=== PATIENT | female | born 1990 | race Caucasian/White ===

== ENCOUNTER 2023-08-22 22:02 | Observation (INO) | payer OTHER, SELFPAY ==
[2023-08-22 22:40] LABS: Urine Albumin Negative (Neg - Trace); Urine Bilirubin Negative (Negative); Urine Character Clear (Clear); Urine Color Yellow; Urine Glucose 3+ (Negative); Urine Ketone Negative (Negative); Urine Leukocyte 1+ (Negative); Urine Nitrite Negative (Negative); Urine Occult Blood Negative (Negative); Urine Urobilinogen Negative (Neg - 1+)
[2023-08-22 22:41] LABS: Hematocrit 29.8 % (37.0-47.0); Hemoglobin 10.3 g/dL (12.0-16.0); Mean Corp Hgb Conc. 34.6 g/dL (33.0-37.0); Mean Corpuscular Hgb 27.8 pg (27.0-31.0); Mean Corpuscular Volume 80.3 fL (81.0-99.0); Mean Platelet Volume 10.6 fL (7.4-10.4); Platelet Count 332 10^3/uL (130-400); Red Blood Cell Count 3.71 10^6/uL (4.20-5.40); Red Cell Dist. Width 14.6 % (11.5-14.5); White Blood Cell Count 8.8 10^3/uL (4.8-10.8)
[2023-08-22 22:44] VITALS: BP 112/77; BMI 31.8
[2023-08-22 22:53] LABS: Urine Bacteria Many (Negative); Urine Red Blood Cell 0-2 /HPF (0-2)
[2023-08-22 22:56] LABS: ALT (SGPT) 13 U/L (0-35); AST (SGOT) 20 U/L (14-36); Albumin 3.3 g/dl (3.5-5.0); Alkaline Phosphatase 143 U/L (38-126); Blood Urea Nitrogen 8 mg/dl (7-17); Calcium 9.4 mg/dl (8.4-10.2); Carbon Dioxide 18 mmol/L (22-30); Chloride 106 mmol/L (98-107); Estimated Creatinine Clearance > 125 ml/min; Glucose 139 mg/dl (70-99); Potassium 3.7 mmol/L (3.5-5.1); Sodium 134 mmol/L (135-145); Total Bilirubin 0.2 mg/dl (0.2-1.3); Total Protein 6.3 g/dl (6.3-8.2); eGFR > 60.00
[2023-08-22 22:57] LABS: Protein/creatinine Ratio 0.4; Urine Protein 15 mg/dl
== END 2023-08-22 23:53 | disposition home or self-care (01) ==
LOC: LDRP 22:02
PROVIDERS: ADMITTING PHYSICIAN Obstetrics & Gynecology
DX: O47.1 False labor at or after 37 completed weeks of gestation (principal); Z3A.37 37 weeks gestation of pregnancy; R03.0 Elevated blood-pressure reading, without diagnosis of hypertension
CPT/HCPCS: 80053; 81003; 81015; 82570; 84156; 85027; 86850; 86900; 86901; G0378

== ENCOUNTER 2023-08-31 20:53 | Observation (INO) | payer OTHER, SELFPAY ==
[2023-08-31 21:32] VITALS: BMI 32.1
[2023-08-31 21:34] LABS: Hematocrit 29.4 % (37.0-47.0); Hemoglobin 10.1 g/dL (12.0-16.0); Mean Corp Hgb Conc. 34.4 g/dL (33.0-37.0); Mean Corpuscular Hgb 27.4 pg (27.0-31.0); Mean Corpuscular Volume 79.9 fL (81.0-99.0); Mean Platelet Volume 10.1 fL (7.4-10.4); Platelet Count 322 10^3/uL (130-400); Red Blood Cell Count 3.68 10^6/uL (4.20-5.40); Red Cell Dist. Width 15.2 % (11.5-14.5); White Blood Cell Count 9.8 10^3/uL (4.8-10.8)
[2023-08-31 21:37] LABS: Urine Albumin Negative (Neg - Trace); Urine Bilirubin Negative (Negative); Urine Character Clear (Clear); Urine Color Yellow; Urine Glucose Negative (Negative); Urine Ketone Negative (Negative); Urine Leukocyte Negative (Negative); Urine Nitrite Negative (Negative); Urine Occult Blood Negative (Negative); Urine Urobilinogen Negative (Neg - 1+)
[2023-08-31 21:48] LABS: ALT (SGPT) 12 U/L (0-35); AST (SGOT) 20 U/L (14-36); Albumin 3.4 g/dl (3.5-5.0); Alkaline Phosphatase 151 U/L (38-126); Blood Urea Nitrogen 11 mg/dl (7-17); Calcium 9.5 mg/dl (8.4-10.2); Carbon Dioxide 18 mmol/L (22-30); Chloride 105 mmol/L (98-107); Estimated Creatinine Clearance > 125 ml/min; Glucose 103 mg/dl (70-99); Potassium 4.3 mmol/L (3.5-5.1); Sodium 132 mmol/L (135-145); Total Bilirubin 0.3 mg/dl (0.2-1.3); Total Protein 6.4 g/dl (6.3-8.2); eGFR > 60.00
[2023-08-31 21:56] LABS: Protein/creatinine Ratio 0.8; Urine Protein 14 mg/dl
[2023-08-31] MEDS: LR 1000 IV (23:30)
== END 2023-09-01 09:20 | disposition home or self-care (01) ==
LOC: LDRP 20:53
PROVIDERS: ADMITTING PHYSICIAN Obstetrics & Gynecology
DX: O13.3 Gestational [pregnancy-induced] hypertension without significant proteinuria, third trimester (principal); Z3A.39 39 weeks gestation of pregnancy; Z82.49 Family history of ischemic heart disease and other diseases of the circulatory system; Z82.0 Family history of epilepsy and other diseases of the nervous system
CPT/HCPCS: 80053; 81003; 82570; 84156; 85027; G0378

== ENCOUNTER 2023-09-02 06:09 | Inpatient (IN) | payer OTHER, SELFPAY ==
[2023-09-02 06:18] VITALS: BMI 28.9
[2023-09-02 06:42] VITALS: BP 140/78
[2023-09-02 06:57] VITALS: BMI 32.1
[2023-09-02 13:30] LABS: % Basophils 0.2 % (0-2); % Eosinophils 0.1 % (0-6); % Immature Granulocytes 0.5 % (0-0.5); % Lymphocytes 9.9 % (20.5-51.1); % Monocytes 3.7 % (1.7-9.3); % Neutrophils 85.6 % (42.2-75.2); Absolute Immature Granulocytes 0.1 10^3/uL (0-0.05); Absolute Lymphocytes 1.1 10^3/uL (1.2-3.4); Absolute Monocytes 0.4 10^3/uL (0.1-0.6); Absolute Neutrophils 9.6 10^3/uL (1.4-6.5); Hematocrit 31.1 % (37.0-47.0); Hemoglobin 10.1 g/dL (12.0-16.0); Mean Corp Hgb Conc. 32.5 g/dL (33.0-37.0); Mean Corpuscular Hgb 26.9 pg (27.0-31.0); Mean Corpuscular Volume 82.7 fL (81.0-99.0); Nucleated Red Blood Cells % 0 %; Platelet Count 341 10^3/uL (130-400); Red Blood Cell Count 3.76 10^6/uL (4.20-5.40); Red Cell Dist. Width 15.8 % (11.5-14.5); White Blood Cell Count 11.3 10^3/uL (4.8-10.8)
[2023-09-02 13:36] LABS: ALT (SGPT) 13 U/L (0-35); AST (SGOT) 22 U/L (14-36); Albumin 3.3 g/dl (3.5-5.0); Alkaline Phosphatase 165 U/L (38-126); Blood Urea Nitrogen 6 mg/dl (7-17); Calcium 9.2 mg/dl (8.4-10.2); Carbon Dioxide 18 mmol/L (22-30); Chloride 106 mmol/L (98-107); Estimated Creatinine Clearance > 125 ml/min; Glucose 89 mg/dl (70-99); Potassium 4.3 mmol/L (3.5-5.1); Sodium 134 mmol/L (135-145); Total Bilirubin 0.3 mg/dl (0.2-1.3); Total Protein 6.3 g/dl (6.3-8.2); eGFR > 60.00
[2023-09-02] MEDS: SUBLIMAZE 100 MCG EPIDURAL (15:50)
[2023-09-02] MEDS: FENTANYL/BUPIVACAINE 100 EPIDURAL ×2 (15:50→23:17)
[2023-09-02] MEDS: TUMS 2 TABLET PO (18:59)
[2023-09-02] MEDS: PEPCID 20 MG PO (21:46)
[2023-09-02] MEDS: PITOCIN 30 UNITS/NSS 500 ML IV (21:47)
[2023-09-03] MEDS: LR 1000 IV (01:30)
[2023-09-03] MEDS: ZITHROMAX INFUSION 250 IV (05:18)
[2023-09-03] MEDS: BICITRA 30 ML PO (05:27)
[2023-09-03] MEDS: TYLENOL 1000 MG PO (05:28)
[2023-09-03] MEDS: TYLENOL 650 MG PO (09:49)
[2023-09-03] MEDS: TORADOL 15 MG IV ×2 (12:24→18:26)
[2023-09-03] MEDS: PEPCID PO (12:25)
[2023-09-03] MEDS: PRENATAL PLUS PO (12:25)
[2023-09-03] MEDS: PEPCID 20 MG PO (20:34)
[2023-09-04] MEDS: TORADOL 15 MG IV ×2 (00:59→06:26)
[2023-09-04] MEDS: TYLENOL 650 MG PO ×4 (04:29→19:51)
[2023-09-04 05:02] LABS: Hematocrit 24.5 % (37.0-47.0); Hemoglobin 8.3 g/dL (12.0-16.0); Mean Corp Hgb Conc. 33.9 g/dL (33.0-37.0); Mean Corpuscular Hgb 27.4 pg (27.0-31.0); Mean Corpuscular Volume 80.9 fL (81.0-99.0); Mean Platelet Volume 10.6 fL (7.4-10.4); Platelet Count 286 10^3/uL (130-400); Red Blood Cell Count 3.03 10^6/uL (4.20-5.40); Red Cell Dist. Width 15.8 % (11.5-14.5); White Blood Cell Count 15.4 10^3/uL (4.8-10.8)
--- NOTE | 2023-09-04 07:32 | W.PN.ANS.POP ---
Anesthesia Post Operative
- Anesthesia Post Op Note
Vital Signs Stable-See Nursing Note: Yes
Airway Patent: Yes
Adequate Pain Control: Yes
Change in Mental Status: No
Current Postoperative Nausea & Vomiting: No
Anesthesia Complications: No
General Anesthetic Recall: No
Unplanned Admission: No
Post Op Hydration Adequate: Yes
[2023-09-04] MEDS: MYLICON 80 MG PO ×2 (08:15→19:51)
[2023-09-04] MEDS: SENOKOT-S 1 TABLET PO (08:15)
[2023-09-04] MEDS: PEPCID 20 MG PO ×2 (08:15→19:46)
[2023-09-04] MEDS: PRENATAL PLUS 1 TABLET PO (08:15)
[2023-09-04] MEDS: MOTRIN 600 MG PO (19:52)
[2023-09-05] MEDS: MYLICON 80 MG PO ×2 (02:30→10:24)
[2023-09-05] MEDS: TYLENOL 650 MG PO ×4 (02:30→22:42)
[2023-09-05] MEDS: MOTRIN 600 MG PO ×4 (02:30→22:42)
[2023-09-05] MEDS: FEOSOL 325 MG PO (08:21)
[2023-09-05] MEDS: PRENATAL PLUS 1 TABLET PO (08:21)
[2023-09-05] MEDS: PEPCID 20 MG PO ×2 (08:21→19:58)
[2023-09-05] MEDS: SENOKOT-S 1 TABLET PO (08:27)
[2023-09-06] MEDS: MOTRIN 600 MG PO (04:55)
[2023-09-06] MEDS: MYLICON 80 MG PO ×2 (04:55→07:58)
[2023-09-06] MEDS: TYLENOL 650 MG PO (04:55)
[2023-09-06] MEDS: PEPCID 20 MG PO (07:58)
[2023-09-06] MEDS: FEOSOL 325 MG PO (07:58)
[2023-09-06] MEDS: PRENATAL PLUS 1 TABLET PO (07:58)
--- NOTE | 2023-09-06 11:00 | W.DS.TRANS ---
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
-
Discharge Instructions:
Discharge Diagnosis/Procedures primary cs
Instructions:
Stand-Alone Forms: LDRP Delivery
Changes to Home Medications: No
Discharge Medications:
DC Medications w/original date entered in [facility]
prenat.vits,patricia,naa-yfxu-ohxld 1 tab PO DAILY Supplement 08/22/23
ibuprofen 600 mg tablet 600 mg PO [id number] PRN cramps #90 tabs 09/06/23
Home Medication Changes
Pending Results: No
Total time spent discharging patient (in min): 20
[2023-09-06 14:47] LABS: Syphilis/T. pallidum Ab Reflex Negative (Negative)
== END 2023-09-06 12:19 | disposition home or self-care (01) | DRG 787 ==
LOC: LDRP 06:09
PROVIDERS: Obstetrics & Gynecology; ADMITTING PHYSICIAN Obstetrics & Gynecology
PROC: 10D00Z1 Extraction of Products of Conception, Low, Open Approach (ICD-10-PCS; 2023-09-03)
PROC: 0UQC0ZZ Repair Cervix, Open Approach (ICD-10-PCS; 2023-09-03)
DX: O34.13 Maternal care for benign tumor of corpus uteri, third trimester (principal); O71.3 Obstetric laceration of cervix; O76 Abnormality in fetal heart rate and rhythm complicating labor and delivery; O62.1 Secondary uterine inertia; D25.0 Submucous leiomyoma of uterus; Z3A.39 39 weeks gestation of pregnancy; Z37.0 Single live birth
CPT/HCPCS: 88307; 80053; 85025; 85027; 86780; 86850; 86900; 86901